=== PATIENT | male | born 1985 | race Caucasian/White ===

== ENCOUNTER 2016-12-31 07:35 | Emergency (ER) | payer OTHER ==
--- NOTE | 2016-12-31 07:38 | UC ---
Throat Pain/Nasal Rey HPI - History of Current Complaint Stated Complaint: THROAT COMPLAINT Time Seen by Provider: 12/31/16 07:37 - Allergies/Home Medications Allergies/Adverse Reactions: Allergies Allergy/AdvReac Type Severity Reaction Status Date / Time No Known Allergies Allergy Verified 12/31/16 07:44 PMH/Surg Hx/FS Hx/Imm Hx - Surgical History Surgical History: None - Social History Alcohol Use: Occasionally Substance Use Type: None Smoking Status (MU): Never Smoked Tobacco Review of Systems Constitutional: Negative Skin: Negative Eyes: Negative ENT: Sore Throat Respiratory: Negative Cardiovascular: Negative Gastrointestinal: Negative Genitourinary: Negative Motor: Negative Neurovascular: Negative Musculoskeletal: Negative Neurological: Negative Psychological: Negative All Other Systems Reviewed And Are Negative: Yes Physical Exam Triage Information Reviewed: Yes Eye Exam: Normal ENT Exam: Normal Dental Exam: Normal Neck exam: Normal Neck: Positive: 1 Respiratory Exam: Normal Cardiovascular Exam: Normal Abdominal Exam: Normal Musculoskeletal Exam: Normal Neurological Exam: Normal Psychological Exam: Normal Skin Exam: Normal Throat Pain/Nasal Course/Dx - Differential Dx/Diagnosis Provider Diagnoses: pharyngitis Discharge - Discharge Plan Condition: Stable Disposition: HOME Patient Education Materials: Pharyngitis (ED) Referrals: Oscar Meyers MD [Primary Care Provider] -
[2016-12-31 07:44] VITALS: BP 100/61
== END 2016-12-31 08:05 | disposition home or self-care (01) ==
LOC: UCCORT 07:35
DX: J02.9 Acute pharyngitis, unspecified (principal)
CPT/HCPCS: 87651; 99212; G0463

== ENCOUNTER 2018-06-23 16:39 | Emergency (ER) | payer OTHER ==
[2018-06-23 17:43] VITALS: BP 124/68
--- NOTE | 2018-06-23 18:23 | UC ---
Throat Pain/Nasal Rey HPI - HPI Summary HPI Summary: 2 wks of sore throat. no other symptoms. no sick contacts. - History of Current Complaint Chief Complaint: UCRespiratory Stated Complaint: SORE THROAT/COUGH/CONGESTION Time Seen by Provider: 06/23/18 18:20 Hx Obtained From: Patient Pain Intensity: 0 Pain Scale Used: 0-10 Numeric - Allergies/Home Medications Allergies/Adverse Reactions: Allergies Allergy/AdvReac Type Severity Reaction Status Date / Time No Known Allergies Allergy Verified 06/23/18 17:43 Home Medications: Home Medications Tumeric 500 mg PO DAILY 06/23/18 [History Confirmed 06/23/18] PMH/Surg Hx/FS Hx/Imm Hx Previously Healthy: Yes - Surgical History Surgical History: None - Social History Alcohol Use: Rare Alcohol Amount: 5 beers Substance Use Type: None Smoking Status (MU): Heavy Every Day Tobacco Smoker Type: Smokeless Tobacco Amount Used/How Often: 1 tin/day Length of Time of Smoking/Using Tobacco: since age 18 Review of Systems All Other Systems Reviewed And Are Negative: Yes Constitutional: Positive: Negative. Negative: Fever, Chills Skin: Negative: Rash ENT: Positive: Sore Throat. Negative: Sinus Congestion Respiratory: Negative: Cough Gastrointestinal: Negative: Vomiting, Diarrhea, Nausea Musculoskeletal: Negative: Other: - denies neck pain Neurological: Negative: Headache Physical Exam Triage Information Reviewed: Yes Appearance: Well-Appearing Vital Signs: Initial Vital Signs Temp 97.6 F 06/23/18 17:35 Pulse 65 06/23/18 17:35 Resp 14 06/23/18 17:35 BP 124/68 06/23/18 17:35 Pulse Ox 100 06/23/18 17:35 Eyes: Positive: Conjunctiva Clear ENT: Positive: Pharyngeal erythema, Nasal congestion, TMs normal, Tonsillar swelling, Uvula midline. Negative: Tonsillar exudate Neck: Positive: Supple, Nontender, Enlarged Nodes @ - ant. cervical bilat.. Negative: Nuchal Rigidity Respiratory Exam: Normal Cardiovascular Exam: Normal Neurological: Positive: Alert. Negative: Fatigued Skin: Negative: Rashes Throat Pain/Nasal Course/Dx - Course Assessment/Plan: 2 wks of pharyngitis, today rapid strep +. will tx. exam showed erythema and tonsillitis, lymphadenopathy. rx'ing antibx. vitals good. - Differential Dx/Diagnosis Provider Diagnosis: Strep pharyngitis Discharge - Sign-Out/Discharge Documenting (check all that apply): Patient Departure All imaging exams completed and their final reports reviewed: No Studies - Discharge Plan Condition: Good Disposition: HOME Prescriptions: Penicillin VK TAB* [Penicillin VK 250 mg Tab*] 500 mg PO BID 10 Days #20 tab Patient Education Materials: Strep Throat (DC) Referrals: Oscar Meyers MD [Primary Care Provider] - - Billing Disposition and Condition Condition: GOOD Disposition: Home
== END 2018-06-23 18:28 | disposition home or self-care (01) ==
LOC: UCCORT 16:39
DX: J02.0 Streptococcal pharyngitis (principal); F17.210 Nicotine dependence, cigarettes, uncomplicated
CPT/HCPCS: 87651; 99212; G0463